=== PATIENT | female | born 1990 | race Caucasian/White ===

== ENCOUNTER → 2020-10-23 | Outpatient (CLI) | payer OTHER ==
--- NOTE | 2020-10-23 16:33 | RAD ---
Examination: 1. Bilateral digital diagnostic mammogram. 2. Limited right breast ultrasound. INDICATION: 30-year-old woman reporting an area of palpable concern in the lower outer right breast. At this visit, she is unable to specifically localize it and she also complains of shooting pain. COMPARISON: None. This will serve as a baseline. TECHNIQUE: CC and MLO views of both breasts were obtained with 2-D technique and reviewed with comput er-aided detection. A BB snyder the site of reported palpable concern in the lower outer right breast. Targeted ultrasound of the lower outer quadrant right breast was also performed. FINDINGS: Scattered fibroglandular densities. No dominant mass, architectural distortion or suspicious calcific ations. No mammographic correlate to the area of patient reported palpable concern in the lower outer quadrant right breast. Targeted ultrasound of this area revealed no suspicious sonographic findings are definite sonographic correlate to the area of palpable concern as reported by the patient. [employer] Operator images were obt ained from the 6 to 9:00 position between 1 and 9 cm from the nipple. FINDINGS: Negative bilateral mammogram and targeted right breast ultrasound. No evidence of malignancy and no i maging correlate to the patient's reported area of palpable concern. BI-RADS Category 1 Negative Recommend clinical management which should include biopsy if there are any clinically suspicious find ings. The absence of a clinically suspicious finding, age-appropriate routine annual mammographic scr eening is recommended, starting at age 40 in average risk women. Electronically signed by: Yodit Moreau MD (10/23/2020 4:31 PM) [id number]
== END ==
LOC: US 12:40 → EEVIPCON 13:00
PROVIDERS: ATTEND Preventive Medicine Occupational Medicine
DX: N64.4 Mastodynia (principal)
CPT/HCPCS: 76641; 77066